=== PATIENT | female | born 1995 | race Caucasian/White ===

== ENCOUNTER → 2022-10-30 13:00 | Outpatient (CLI) | payer OTHER, SELFPAY ==
--- NOTE | ~2022-10-30 | US_ITS ---
EXAMINATION: US OB transvaginal DATE: 10/30/2022 13:31 INDICATION: First trimester viability assessment TECHNIQUE: Real-time pelvic transabdominal and transvaginal ultrasound was performed. COMPARISON: None. FINDINGS: The uterus measures 6.8 x 4.8 x 6 cm. There is an intrauterine gestational sac. There is a 1.3 x 1.1 x 0.6 cm hypoechoic area adjacent to the gestational sac. A yolk sac is identified. heart motion is identified measuring 153 beats per minute (bpm) by M-mode Doppler. The crown ru mp length measures 1.5 cm, which correlates with an estimated gestational age of 7 weeks and 6 day(s) (+/-) 5 day(s). The left ovary is not visualized however no left adnexal abnormality is seen. The right ovary measure s 2.7 x 3 x 1.9 cm. There is normal vascular flow in the right ovary. There is no free fluid in the p gaye. IMPRESSION: 1. Live intrauterine with an estimated gestational age of 7 weeks and 6 day(s) (+/-) 5 day( s) and an estimated delivery date of 06/12/2023. 2. Small subchorionic hematoma. Reviewed, dictated and finalized at location A. LANCE WEB DESIGNER IMPRESSION: 1. Live intrauterine with an estimated gestational age of 7 weeks and 6 day(s) (+/-) 5 day(s) and an estimated delivery date of 06/12/2023. 2. Small subchorionic hematoma.
== END ==
PROVIDERS: PCP Advanced Practice Midwife; Visit Provider Advanced Practice Midwife
DX: O36.80X0 Pregnancy with inconclusive fetal viability, not applicable or unspecified (principal); O36.8911 Maternal care for other specified fetal problems, first trimester, fetus 1; Z3A.01 Less than 8 weeks gestation of pregnancy
CPT/HCPCS: 76817

== ENCOUNTER → 2022-11-30 10:09 | Outpatient (CLI) | payer OTHER, SELFPAY ==
--- NOTE | ~2022-11-30 | US_ITS ---
EXAMINATION: US OB limited DATE: 11/30/2022 10:25 INDICATION: Subchorionic hematoma TECHNIQUE: Real-time transabdominal and transvaginal obstetric ultrasound. FINDINGS: Ultrasound dated 10/30/2022 The uterus measures 11.2 x 5.8 x 9.4 cm. There is an intrauterine gestational sac with pole. Fe leatha heart rate is 165 BPM. Normal amniotic fluid volume subjectively. No evidence for subchorionic he morrhage on the current study. No free fluid in the pelvis. IMPRESSION: 1. SL IUP with heart rate of 164 BPM. 2: No evidence for subchorionic hematoma on the current study. Reviewed, dictated and finalized at location A. TOOTH LAPPING MACHINE OPERATOR
== END ==
PROVIDERS: PCP Obstetrics & Gynecology Gynecology; Visit Provider Obstetrics & Gynecology Gynecology
DX: O36.8910 Maternal care for other specified fetal problems, first trimester, not applicable or unspecified (principal)
CPT/HCPCS: 76815

== ENCOUNTER → 2023-01-14 13:51 | Outpatient (CLI) | payer OTHER, SELFPAY ==
--- NOTE | ~2023-01-14 | US_ITS ---
EXAMINATION: US OB /maternal detail DATE: 01/14/2023 14:26 INDICATION: survey TECHNIQUE: Multiple obstetric sonographic images performed. FINDINGS: Comparison to multiple prior studies sequentially, with oldest reviewed study dated 2021. There is a single living fetus in transverse/variable presentation. The placenta is posterior withou t placenta previa. Amniotic fluid volume is normal. cardiac activity and movement is noted with a heart rate of 149 beats per minute. The following anatomy was identified as normal: 4 chamber heart 3 vessel cord cord insertion kidneys urinary bladder stomach spine diaphragm ventricles cisterna magna cerebellum The following biometric data were obtained: BPD: 42mm corresponds to gestational age 18 weeks 5 days. Head circumference: 164 mm corresponds to gestational age 19 weeks 1 days. Abdominal circumference: 140 mm corresponds to gestational age 19 weeks 3 days. Femur length: 28 mm corresponds to gestational age 18 weeks 3 days. Head circumference to abdominal circumference ratio: 1.16 (normal range for expected gestational age is 1.09-1.26). Estimated weight: 277 grams +/- 40 grams using Hadlock method, 62%. IMPRESSION: 1: Single living intrauterine with an estimated gestational age of 18weeks 5days by initial ultrasound measurements, with an EDC of 06/12/2023 in variable presentation. 2. Normal survey. Reviewed, dictated and finalized at location L. RAL AIR MARSHAL IMPRESSION: 1: Single living intrauterine with an estimated gestational age of 18 weeks 5days by initial ultrasound measurements, with an EDC of 06/12/2023 in tiny iable presentation. 2. Normal survey.
== END ==
PROVIDERS: PCP Obstetrics & Gynecology Gynecology; Visit Provider Obstetrics & Gynecology Gynecology
DX: Z36.9 Encounter for antenatal screening, unspecified (principal); Z3A.18 18 weeks gestation of pregnancy
CPT/HCPCS: 76805

== ENCOUNTER 2023-05-22 11:40 | Outpatient (CLI) | payer OTHER, SELFPAY ==
[2023-05-22 12:15] VITALS: BP 109/70; PULSE 85
[2023-05-22 12:16] VITALS: BP 111/74; PULSE 83
[2023-05-22 12:20] LABS: Basophils Absolute Auto 0.1 K/mm3 (0.0-0.1); Basophils Percent Auto 0.4 % (0.2-1.2); Eosinophils Absolute Auto 0.1 K/mm3 (0-0.3); Eosinophils Percent Auto 1.2 % (0-4.4); Hematocrit 38.3 % (37.0-47.0); Hemoglobin 12.7 g/dL (12.0-15.0); Immature Granulocyte Absolute 0.07 K/mm3 (0.00-0.031); Immature Granulocyte Percent A 0.6 % (0-0.5); Lymphocytes Absolute Auto 2.02 K/mm3 (0.9-3.2); Lymphocytes Percent Auto 17.6 % (18.3-44.2); Mean Corpuscular HGB Conc 33.2 g/dl (32-36); Mean Corpuscular Hemoglobin 31.2 pg (26-34); Mean Corpuscular Volume 94.1 fl (80-100); Mean Platelet Volume 9.7 fl (7.4-10.4); Monocytes Absolute Auto 0.6 K/mm3 (0.1-0.6); Monocytes Percent Auto 5.6 % (2.6-8.5); Neutrophils Absolute Auto 8.6 K/mm3 (1.3-6.7); Neutrophils Percent Auto 74.6 % (45.5-73.1); Platelet Count Result 254 k/mm3 (150-375); Red Blood Count 4.07 M/mm3 (4.2-5.4); Red Cell Distribution Width 12.9 % (11.5-14.5); White Blood Count 11.5 K/mm3 (4.5-10.0)
[2023-05-22 12:25] LABS: Appearance Urine Clear (Clear); Bacteria Urine Rare /hpf; Bilirubin Urine Negative (Negative); Blood Urine Negative (Negative); Color Urine Yellow (Yellow); Glucose Urine UA Negative (Negative); Ketones Urine Negative (Negative); Leukocyte Esterase Ur 3+ LEU/UL (NEGATIVE); Nitrate Urine Negative (Negative); Non Pathogenic Casts 0-2; Protein Urine Negative (Negative); RBC Urine 0-2 /hpf (0-2); Specific Grav Ur 1.012 (1.001-1.035); Squamous Epithelial Cell Urine Occasional /hpf (Few); Urobilinogen Urine 0.2 mg/dL (<2.0); pH Urine 7.5 (5.0-9.0)
[2023-05-22 12:28] LABS: Creatinine Urine 44.5 mg/dL; Total Protein Urine Random 11 mg/dL; Ur Ttl Prot Creatinine Ratio 0.25 mg/mg (0-0.20)
[2023-05-22 12:30] VITALS: BP 108/67; PULSE 82
[2023-05-22 12:32] LABS: Add Urine Microscopic? YES
[2023-05-22 12:33] LABS: Alanine Aminotransferase 61 U/L (6-35); Albumin Level 3.9 g/dL (3.5-5.1); Alkaline Phosphatase 132 U/L (38-126); Anion Gap 5 mmol/L (8-16); Aspartate Amino Transferase 43 U/L (14-36); Bilirubin,Total 0.3 mg/dL (0.2-1.3); Blood Urea Nitrogen 11 mg/dL (7-17); Calcium 8.7 mg/dL (8.4-10.2); Carbon Dioxide 27 mmol/L (22-30); Chloride 104 mmol/L (98-107); Estimated Glomerular Filt Rate > 60; Glucose 85 mg/dL (65-110); Potassium 4.1 mmol/L (3.4-5.0); Sodium 136 mmol/L (137-145); Uric Acid 3.8 mg/dL (2.5-7.5)
[2023-05-22 12:45] VITALS: BP 106/69; PULSE 78
[2023-05-22 15:02] LABS: Hepatitis B Surface Antigen Negative (Negative)
[2023-05-22 15:07] LABS: HAV RESULT Negative (Negative); Hepatitis B Core IgM Result Negative (Negative)
[2023-05-22 15:17] LABS: Hepatitis C Virus Antibody Negative (Negative)
== END 2023-05-22 13:00 | disposition home or self-care (01) ==
LOC: ANHOBOP 11:49 → ANHOBPP 11:51
PROVIDERS: Visit Provider Obstetrics & Gynecology Gynecology
DX: O12.03 Gestational edema, third trimester (principal); Z3A.36 36 weeks gestation of pregnancy
CPT/HCPCS: 36415; 59025; 80053; 80074; 81001; 82570; 84156; 84550; 85025; 87086; 87088; 99199

== ENCOUNTER 2023-05-23 17:20 | Outpatient (CLI) | payer OTHER, SELFPAY ==
[2023-05-23 17:32] VITALS: BMI 29.1
[2023-05-23 18:28] LABS: Collection Time Urine 24 HOURS
[2023-05-23 18:29] LABS: Patient Weight 169 Lbs; Total Volume 24 Hour Urine 1850 ml
[2023-05-23 18:39] LABS: Creatinine Clearance Urine 94.1 ml/min (75-125); Creatinine Urine 46.1 mg/dL; Total Protein Urine 24 Hr 259 mg/24hr (28-141); Total Protein Urine Random 14 mg/dL
== END 2023-05-23 17:21 | disposition home or self-care (01) ==
PROVIDERS: Visit Provider Obstetrics & Gynecology Gynecology
DX: Z34.90 Encounter for supervision of normal pregnancy, unspecified, unspecified trimester (principal); Z3A.00 Weeks of gestation of pregnancy not specified
CPT/HCPCS: 81050; 82575; 84156

== ENCOUNTER 2023-05-31 15:44 | Outpatient (CLI) | payer OTHER, SELFPAY ==
[2023-05-31 16:43] LABS: Alanine Aminotransferase 60 U/L (6-35); Albumin Level 3.9 g/dL (3.5-5.1); Alkaline Phosphatase 133 U/L (38-126); Anion Gap 5 mmol/L (8-16); Aspartate Amino Transferase 49 U/L (14-36); Bilirubin,Total 0.3 mg/dL (0.2-1.3); Blood Urea Nitrogen 12 mg/dL (7-17); Calcium 9.3 mg/dL (8.4-10.2); Carbon Dioxide 29 mmol/L (22-30); Chloride 101 mmol/L (98-107); Estimated Glomerular Filt Rate > 60; Glucose 79 mg/dL (65-110); Potassium 4.1 mmol/L (3.4-5.0); Sodium 135 mmol/L (137-145)
== END 2023-05-31 15:45 | disposition home or self-care (01) ==
LOC: ANHLAB 15:46
PROVIDERS: Visit Provider Obstetrics & Gynecology Gynecology
DX: Z34.03 Encounter for supervision of normal first pregnancy, third trimester (principal)
CPT/HCPCS: 36415; 80053

== ENCOUNTER 2023-06-13 08:25 | Inpatient (IN) | payer OTHER, SELFPAY ==
[2023-06-13] VITALS (149 sets, daily range): BP systolic 89–220; BP diastolic 49–180; PULSE 52–140; RESP 18; TEMP 36.2–37.4; O2SAT 84–100; BMI 29.6
--- NOTE | 2023-06-13 08:25 | LDADM ---
This patient, Silverio Gonzalez, was admitted to Labor/Delivery/Recovery 105 on 06/13/23 at 08:25. Plans for labor, pain management and were discussed with patient. Patient/family oriented to hospital policies and general routines including ID bracelet, bed and alarms, visiting hours, pain management, procedures, bathroom and other care routines, personal items, smoking policy, room service/diet and guest tray routines, security routines, and visiting hours. Patient/Family are encouraged to report perceived risks to care and to ask questions if they do not understand what they are told or what they should do. See OBIX for further documentation.
--- NOTE | 2023-06-13 09:21 | PM.IMHP ---
H&P: HPI History of Present Illness Date/Time: 06/13/23 09:21 Chief Complaint: contractions Narrative: Silverio is a 27yo @ 39.4wks (HOSSEIN 06/16/23) who presented to L&D with contractions that have been occuring about every 3 minutes since early this morning. She reports good movement. No VB or LOF. She was found to be 5.5cm dilated on admission. She would like epidural. She has had regular care with Dr. Sims; normal course. GBS negative. Review of Systems Constitutional: Constitutional: Denies chills, Denies fever(s) and Denies headache(s) Eyes: Eyes: Denies change in vision ENT: Denies headache(s) Cardiovascular: Cardiovascular: Denies chest pain and Denies dyspnea Respiratory: Respiratory: Denies dyspnea Genitourinary: Genitourinary: Denies abnormal vaginal bleeding and Denies vaginal discharge Neurologic: Denies headache(s) Psychiatric: Psychiatric: Denies anxiety and Denies depression [facility] Family History Family History Mother High cholesterol Hypertension Other Breast cancer Social History Social History Smoking status: Never smoker Alcohol intake: current Drinks per week: 2 Substance use: never Spiritual care concerns: No Meds Home Medications and Allergies Home Medications Medication Instructions Recorded Confirmed Type aspirin 81 mg tablet 81 mg PO DAILY 05/17/23 05/17/23 History cholecalciferol (vitamin D3) 1,250 1,250 mcg PO WEEKLY 05/17/23 05/17/23 History mcg (50,000 unit) tablet prenat.vits,chuy,rtv-apsw-ixlxr 1 tablet 05/17/23 History Allergies Allergy/AdvReac Type Severity Reaction Status Date / Time No Known Allergies Allergy Verified 09/17/20 09:09 Vital Signs Vital Signs - 24 hr 06/13/23 09:00 06/13/23 09:15 Pulse Rate 82 82 Blood Pressure 115/81 121/82 Exam Const: General: cooperative, healthy appearing and acute distress mild (with contractions) Nutritional Appearance: obese Orientation/consciousness: patient oriented x3 Resp: Effort & Inspection: normal respiratory effort Cardio: Rate: regular rate GI: GI Palp: No abdominal tenderness : Other: FHT's: 140's/ mod tiny/ + accels/ no decels - cat 1 TOCO: ctxs q3-4min Cervix: 5.5/50/-2 Membranes: intact Presentation: cephalic Skin: General skin exam: normal color Neuro: General: patient oriented x3 Extrem: General: normal to inspection Psych: Appearance: grossly normal Affect: normal affect Attitude: cooperative Assessment and Plan Assessment and plan (1) Active labor at term: Status: Acute Plan - Admit to L&D - Anesthesia consult for epidural - Continuous monitoring; currently reassuring - GBS negative - Will plan for AROM after epidural; if no change, would augment with low dose pitocin
[2023-06-13] MEDS: LACTATED RINGERS 1,000 ML 125 ML IV CONT ×3 (09:23→16:01)
--- NOTE | 2023-06-13 09:28 | WPDHPUPDATE1 ---
History and Physical Update Update Date/Time: 06/13/23 09:28 History and Physical has been reviewed, including an updated exam of the patient. There are NO changes in the patient's condition. Risks, benefits, and alternatives have been discussed and questions answered. Patient agrees to proceed with procedure.
[2023-06-13 09:29] LABS: Basophils Absolute Auto 0.1 K/mm3 (0.0-0.1); Basophils Percent Auto 0.3 % (0.2-1.2); Eosinophils Percent Auto 0.1 % (0-4.4); Hematocrit 40.6 % (37.0-47.0); Hemoglobin 13.9 g/dL (12.0-15.0); Immature Granulocyte Percent A 0.7 % (0-0.5); Lymphocytes Absolute Auto 1.62 K/mm3 (0.9-3.2); Lymphocytes Percent Auto 10.8 % (18.3-44.2); Mean Corpuscular HGB Conc 34.2 g/dl (32-36); Mean Corpuscular Hemoglobin 31.2 pg (26-34); Mean Platelet Volume 10.6 fl (7.4-10.4); Monocytes Absolute Auto 0.6 K/mm3 (0.1-0.6); Monocytes Percent Auto 4.3 % (2.6-8.5); Neutrophils Absolute Auto 12.6 K/mm3 (1.3-6.7); Neutrophils Percent Auto 83.8 % (45.5-73.1); Platelet Count Result 217 k/mm3 (150-375); Red Blood Count 4.46 M/mm3 (4.2-5.4); Red Cell Distribution Width 13.2 % (11.5-14.5)
--- NOTE | 2023-06-13 11:11 | PM.OBPNLAB ---
Pain Control Date/time seen: 06/13/23 11:11 Pain control: epidural Pelvic Exam Dilation (cm): 7 Effacement (%): 90 station: 0 Amniotic membrane status: Ruptured (AROM, clear 1110) Contractions Monitor mode: External Contraction frequency: 2 (-4) Status status: Category l Assessment and Plan Assessment: active labor Plan: continuous present management
[2023-06-13] MEDS: OXYTOCIN 30 UNITS/NS 500 ML 30 UNITS/500 ML BAG 999 UNITS IV CONT (16:59)
--- NOTE | 2023-06-13 17:20 | P.PCNOB_ITS ---
OB - Delivery Note Procedure Delivery date: 06/13/23 Intrapartal Events: Decelerations (with thick meconium) Delivery augmentation: Rupture of Membranes Delivery monitor: External FHT and External Uterine Route of delivery: Laceration Description: Perineal - 1st Degree Delivery repair: vicryl Specimen: Yes (placenta) Quantitative Blood Loss (ml): 200 Anesthesia type: Epidural Disposition: Floor [place] Baby Date of : 06/13/23 Time of : 16:53 Weeks of gestation at delivery: 39 (.4) Infant gender: Male Weight (pounds): 7 Weight (ounces): 1 presentation: vertex position: Right Occiput Anterior Placenta delivery description: Expressed Cord Vessel Description: 3 Vessels and Clamped/Cut score one minute: 8 score five minutes: 9 Narrative: Silverio progressed to complete dilation and was found to be having severe variables. She pushed for approximately 15 minutes with good maternal effort. She delivered the head over intact perineum. No nuchal cord was palpated. She easily delivered the infant's shoulders and body without complication. Thick meconium was present. The infant was immediately placed skin to skin. The umbilical cord was clamped and cut and handed off to the awaiting pediatric team. A segment of the cord was collected for cord gases. The remaining cord blood was collected for typing. With Pitocin infusing and gentle downward pressure, the placenta delivered without complications. Bimanual massage was performed and good uterine tone was noted. She was examined and a right vaginal extending to a first-degree perineal laceration was noted. It was repaired in the normal fashion using 2-0 Vicryl. Good hemostasis with firm uterine tone was noted. Sponge, lap, instrument, needle counts were correct at the end of the procedure. Mom and baby were left bonding skin to skin in the birthing suite in a stable condition. [facility] Delivery Billing Delivery Delivery: Delivery Charge
[2023-06-13] MEDS: OXYTOCIN 30 UNITS/NS 500 ML 30 UNITS/500 ML BAG 125 UNITS IV CONT (17:35)
[2023-06-13] MEDS: WITCH HAZEL 40 PADS 1 PAD TOPICAL (19:08)
[2023-06-13] MEDS: BENZOCAINE 20% AER SPR (*SP) 56 GM CAN 1 SPRAY TOPICAL (19:08)
--- NOTE | 2023-06-13 19:27 | PC.NURSE ---
Patient transferred to post room # 281 via ( W/C ). Support person present. Oriented to unit, room, information board, rooming in, admission packet and security measures. Patient verbalizes understanding.
[2023-06-14] MEDS: IBUPROFEN 600 MG TABLET PO (00:05)
[2023-06-14 05:43] LABS: Hematocrit 31.2 % (37.0-47.0); Hemoglobin 10.4 g/dL (12.0-15.0)
[2023-06-14] MEDS: DOCUSATE SODIUM 100 MG CAPSULE PO (08:23)
[2023-06-14] MEDS: MULTIVIT/MIN/PREN/FOL AC/IRON TABLET 1 TAB PO (08:23)
[2023-06-14 08:35] VITALS: BP 124/76; PULSE 104; RESP 18; TEMP 36.7; O2SAT 100
[2023-06-14 12:00] VITALS: BP 112/81; PULSE 116; RESP 16; TEMP 36.8; O2SAT 99
--- NOTE | 2023-06-14 12:22 | PM.OBPNVD ---
OB - PN: Subj Subjective Date/time seen: 06/14/23 12:22 Patient comments: no complaints and pain well controlled baby status: doing well OB - PN: Obj Data Labs 06/14/23 05:12 Labs: Laboratory Results - last 24 hr 06/13/23 06/14/23 12:36 05:12 Hgb 10.4 L D Hct 31.2 L Blood Type A Positive Antibody Screen Negative OB - PN A/P Plan day: 1 Plan: routine care, discharge home, follow up 6 weeks and other (unsure control) Time Spent With Patient Time: Total time spent is greater than 50% in coordination of care (as documented) at patient's floor/unit and/or counseling patient: Exam : Bimanual exam- vagina & uterus: other (Uterus firm, nt @U)
--- NOTE | 2023-06-14 12:23 | PM.OBDSVD ---
DS: Admitting Diagnosis Discharge Date 06/14/23 Admitting Diagnosis Labor at 39+weeks DS: Discharge Diagnosis Discharge Diagnosis (1) (normal spontaneous vaginal delivery): Code(s): O80 - Encounter for full-term uncomplicated delivery Status: Acute OB - DS: Summary OB Procedures : Ultrasound OB Procedures Intrapartum: Spontaneous Vag Delivery OB Procedures: : None Peripartum Data Infant Delivery Method: Natural Vaginal Laceration Description: Perineal - 1st Degree complications: none Status at Discharge Functional status at discharge: independent ambulation Overall status at discharge: patient is progressing back to baseline Time Spent with Patient Time attestation: Total time spent providing and/or coordinating discharge services: DS: Data Data Completed and Pending Pending studies at discharge: Pending at discharge 06/13/23 17:58 Surgical [PTH] Routine Labs on day of discharge: Labs from last 24 hours 06/14/23 06/13/23 05:12 12:36 Hgb 10.4 L D Hct 31.2 L Blood Type A Positive Antibody Screen Negative Discharge Plan Discharge Attending physician on discharge: Letty Sims Discharging Clinician: Letty Sims Anticipated Discharge Date/Time: 06/14/23 12:24 Patient Disposition: Home, Self-Care Activity: may shower and pelvic rest Diet: regular Patient Instructions: Antibiotic Form Stand Alone Forms: General Discharge Information Follow-up/Referrals: Letty Sims MD [Physician] - 6 Weeks Discharge Medications: Continued #2 Tablet 1 tablet Discontinued Adult Low Dose Aspirin 81 mg Tablet 81 mg PO DAILY Date of admission: 06/13/23 08:25 Primary Care Provider: PHYSICIAN,ACID POLYMERIZATION OPERATOR Admitting Provider: Letty Sims Attending physician on admission: Letty Sims Condition: Stable
--- NOTE | 2023-06-14 12:31 | WPDANLDPN2 ---
Anes-Prog Note L&D Date/Time: 06/14/23 12:31 Comfortable throughout: labor and delivery Neuraxial method: epidural Epidural/Spinal procedure site: clean & non-tender Neuro status: Neuro function grossly intact. Cardiovascular status: normal Respiratory status: normal Airway patency: baseline Mental status: baseline Post-Op hydration status: normal Vital Signs: Last Vital Signs Temp 36.7 C 06/14/23 08:35 Pulse 104 H 06/14/23 08:35 Resp 18 06/14/23 08:35 BP 124/76 06/14/23 08:35 Pulse Ox 100 06/14/23 08:35 O2 Del Method Room Air 06/13/23 20:20 Pain score (VAS): 2/10 I/O: Intake & Output 06/13/23 06/14/23 06/14/23 23:59 07:59 15:59 Intake Total 1500 Output Total 325 Balance 1175 Patient feedback: Patient satisfied with anesthetic care.
[2023-06-14 14:19] LABS: Rapid Plasma Reagin Non-Reactive (NonReactive)
--- NOTE | 2023-06-14 15:53 | PC.NURSE ---
Addendum entered by Cornelia Conklin RN 06/14/23 16:05: Visualized small linear ellis on the left nipple that are purple in color. Reviewed with mother how to protect her nipple from injury using the sandwich hold to facilitate a deeper latch. Original Note: [id number] Introductions were made, then consulted with patient to assess needs related to . Mother led the conversation with her?plans to feed?her infant and the?experience so far. Resources provided for inpatient and outpatient services with the mom/baby guide and name written on the white board. Mother works well with her with encouragement and education. Encouraged understanding of the benefits of skin to skin (demonstrating unwrapping and placing upright on her chest), stimulating with massage touch, changing positions to encourage wakefulness, how to watch for early feeding cues, responsive feeding, feeding on demand (aiming for 8-12 times in 24 hours, about every 2-3 hours), milk production, building/maintaining a milk supply, duration of feeding, signs of adequate intake/output and how to record on the feeding sheet. Reviewed positioning and ear, shoulder, hip alignment, supporting the breast to facilitate a deep latch, asymmetrical latch (off-center), leading with the chin with a big, open, wide gape and body close to mother. latched optimally to the right breast using the football positioning, then after an effective latched to the left breast with cross cradle position. Education given to mother of how to visualize suck/swallow ratios and listen for drinking at the breast. Infant was able to maintain latch without discomfort to mother. Nipple care reviewed with optimal latch and good positioning. Mother voiced understanding of skin to skin, stimulating with massage touch, responsive feedings, hand expressed colostrum, talking to to encourage if it has been 2 -2.5 hours since the start of the last , to call if infant does not latch, or if there is discomfort with . Mother voiced understanding of information and will call if there is a request for assistance. Reported to the primary RN.
[2023-06-14 16:25] VITALS: BP 124/79; PULSE 101; RESP 18; TEMP 36.6
--- NOTE | 2023-06-14 16:27 | PC.NURSE ---
Assessment unchanged, patient remains stable, discharging to home, approved by Dr. Sims. Patient requesting to be with infant who is being transferred to [facility].
[2023-06-16 08:54] VITALS: BP 128/75; PULSE 105; RESP 18; TEMP 36.8; O2SAT 100
== END 2023-06-14 16:33 | disposition home or self-care (01) | DRG 807 ==
LOC: ANHLDR 08:50 → ANHOB2 19:57
PROVIDERS: Admitting Provider Obstetrics & Gynecology; Visit Provider Obstetrics & Gynecology Gynecology
DX: O77.0 Labor and delivery complicated by meconium in amniotic fluid (principal); Z37.0 Single live birth; Z3A.39 39 weeks gestation of pregnancy; O70.0 First degree perineal laceration during delivery; O36.8330 Maternal care for abnormalities of the fetal heart rate or rhythm, third trimester, not applicable or unspecified
CPT/HCPCS: 36415; 84112; 85014; 85018; 85025; 86592; 86850; 86900; 86901; 88307; A9270; J2590; J2795; J7120

== ENCOUNTER 2023-12-31 09:45 | Emergency (ER) | payer OTHER, SELFPAY ==
[2023-12-31 09:58] VITALS: BP 93/65; PULSE 103; RESP 16; TEMP 36.7; O2SAT 99
--- NOTE | 2023-12-31 10:10 | ED.URI ---
HPI - URI/Sore Throat General Chief Complaint: Upper Respiratory Infection Stated Complaint: COUGH/BODY ACHES/CHILLS/SORE THROAT Time Seen by Provider: 12/31/23 10:11 Source: patient and RN notes reviewed Mode of arrival: ambulatory Limitations: no limitations History of Present Illness HPI Narrative: 28-year-old female presented for complaint of cough, sore throat, and fever and chills. Onset yesterday. Endorses and 6-month-old tested positive for influenza this week. Not taking anything for symptoms. Denies shortness of breath, wheezing, nausea vomiting, diarrhea or lethargy. MD elicited complaint: cough Related Data Home Medications Medication Instructions Recorded Confirmed No Home Medications 12/31/23 12/31/23 Allergies Allergy/AdvReac Type Severity Reaction Status Date / Time No Known Allergies Allergy Verified 12/31/23 09:54 Review of Systems Review of Systems: CONSTITUTIONAL: Endorses malaise denies chills, sweats, fever EYES: Denies visual changes, redness, or discharge ENT: Reports rhinorrhea, sore throat denies sinus pain, otalgia CARDIOVASCULAR: Denies chest pain, palpitations, edema RESPIRATORY: Reports cough, Denies dyspnea GASTROINTESTINAL: Denies abdominal pain, nausea, vomiting, diarrhea SKIN: Denies rash or itching MUSCULOSKELETAL: Endorses myalgia PMFSH Family History Family History Mother High cholesterol Hypertension Other Breast cancer Social History Social History Smoking status: Never smoker Second hand tobacco smoke exposure: No Alcohol intake: current Drinks per week: 2 Substance use: never Lack of Transportation: No Lack of Food: Never True Current Housing: I Have Housing Concerned About Future Housing: No Difficulty Paying Gas/Electric Bills: No Difficulty Paying for Meds: No Currently Unemployed: No Education: High School Diploma/GED Difficulty w/ Childcare or Family Care: No Spiritual care concerns: No Exam Narrative: GENERAL: well-appearing EYES: PERRLA, conjunctivae clear ENT: Mucous membranes moist. TM pearly maria with dull light reflex bilaterally; no tragal tenderness. Oropharynx not erythematous without lesions or exudate, no drooling, no hoarseness, no trismus, uvula midline. No tripod positioning, muffled voice, soft palate or pharyngeal wall bulging NECK: Supple. No lymphadenopathy CHEST: Clear to auscultation, breath sounds equal. HEART: Regular rate and rhythm. No murmur heard. SKIN: Warm, dry, no rash. NEURO: Alert and oriented x3. PSYCH: Normal mood and affect Course Course Emergency Course: Patient is aware of diagnosis, understands and agrees to treatment plan. Anticipatory guidance given. Patient agrees to follow-up as directed and is aware of reasons to seek care at the emergency department. Portions of this record may have been created with voice recognition software Level of Care: Express Care Visit Vital Signs Vital signs: Vital Signs Temperature 98.1 F 12/31/23 09:58 Pulse Rate 103 H 12/31/23 09:58 Respiratory Rate 16 12/31/23 09:58 Blood Pressure 93/65 L 12/31/23 09:58 Pulse Oximetry 99 12/31/23 09:58 Temperature 98.1 F 12/31/23 09:58 Pulse Rate 103 H 12/31/23 09:58 Respiratory Rate 16 12/31/23 09:58 Blood Pressure 93/65 L 12/31/23 09:58 Pulse Oximetry 99 12/31/23 09:58 reviewed MDM - URI/Sore Throat MDM Narrative Medical decision making narrative: Negative flu and COVID. Results reviewed with patient. Declined strep testing. Discussed physical exam findings. Advised supportive measures and signs/symptoms to go to the ER. Pt is appropriate for outpt treatment and f/u. Differential Diagnosis Differential diagnosis: Likely upper respiratory infection, viral infection and influenza Discharge Plan Discharge Clinical Impression:
== END 2023-12-31 10:20 | disposition home or self-care (01) ==
PROVIDERS: Emergency Provider Nurse Practitioner Family; PCP Obstetrics & Gynecology Gynecology
DX: B34.9 Viral infection, unspecified (principal); Z20.822 Contact with and (suspected) exposure to COVID-19
CPT/HCPCS: 87426; 87804; 99213; G0463

== ENCOUNTER 2025-08-03 08:10 | Outpatient (CLI) | payer OTHER, SELFPAY ==
--- OUTSIDE RECORDS SUMMARY | 2025-08-03 08:13 | XMS_ITS | Clinical Summary ---
Author Organization [facility] [employer] Address [address] [place] [address] Care Team Providers Care Loan Specialist Name Role Phone Unavailable Primary Care Provider Unavailabl e Source Comments [facility],non-owned Affiliates and Associated Physician Practices is amultiple site organization consisting of ambulatory clinics and hospital sitesin [place], [place], [place] and [place]. This disclosure is being madepursuant to the Care Everywhere program and may not contain all information available regarding this patient. Last updated 18.[facility] [employer] Allergies No known active allergies Social History Tobacco Use Types Packs/Day Years Used Date Smoking Tobacco: Never Alcohol Use Standard Drinks/Week Comments Not Asked 0 (1 standard drink = 0.6 oz pur e alcohol) Comments No Sex and Gender Information Value Date Recorded Sex Assigned at Not on file Legal Sex Female 9:33 AM INVESTMENT COUNSELOR Gender Identity Not on file Sexual Orientation Not on file Last Filed Vital Signs Vital Sign Reading Time Taken Comments Blood Pressure 111/67 01/13/2016 10:11 AM INVESTMENT COUNSELOR Pulse 87 01/13/2016 10:11 AM INVESTMENT COUNSELOR Temperature 36.8 C (98.2 F) 01/13/2016 10:11 AM INVESTMENT COUNSELOR Respiratory Rate - - Oxygen Saturation - - Inhaled Oxygen Concentration - - Weight 54.1 kg (119 lb 3.2 oz) 01/13/2016 10:11 AM INVESTMENT COUNSELOR Height 160 cm (5' 3) 01/13/2016 10:11 AM INVESTMENT COUNSELOR Body Mass Index 21.12 01/13/2016 10:11 AM INVESTMENT COUNSELOR Plan of Treatment Health Maintenance Due Date Last Done Comments HIV SCREENING 2009 HEPATITIS C SCREENING 09/16/2012 DTAP/TDAP/TD VACCINES (1 - Tdap) 2013 HEPATITIS B VACCINE (1 of 3 - 19+ 3-dose series) 2013 PAP SMEAR 2015 HPV VACCINE (1 - 3-dose SCDM series) 2021 DEPRESSION SCREENING 11/15/2024 COVID-19 VACCINE (2023-2 5 season) 2025 INFLUENZA VACCINE (#1) 2025 ZOSTER VACCINE (1 of 2) 2044 HIB VACCINE Aged Out No longer eligi ble based on patient's age to complete this topic MENINGOCOCCAL (Group B) VACC INE SHARED DECISION-MAKING Aged Out No longer eligibl e based on patient's age to complete this topic MENINGOCOCCAL GROUPS A/C/Y/W VACCINE Aged Out No longer eligible b ased on patient's age to complete this topic PNEUMOCOCCAL VACCINE Aged Out No long er eligible based on patient's age to complete this topic Insurance SELF PAY NO INSURANCE Member Subscriber Plan / Payer (Ef fective for All Dates) Name:Silverio Michel Member ID:Not on file Relation to Subscriber:Self Name:Silverio Michel Subscriber ID:Not on file Payer ID:Not on file Group ID:Not on file Type:Self Pay Address: [place], [place] [facility]
[2025-08-03 13:30] LABS: Hematocrit 37.2 % (37.0-47.0); Hemoglobin 11.8 g/dL (12.0-15.0); Immature Granulocyte Percent A 0.8 % (0-0.5); Lymphocytes Absolute Auto 1.43 K/mm3 (0.9-3.2); Mean Corpuscular HGB Conc 31.7 g/dl (32-36); Mean Corpuscular Hemoglobin 30.6 pg (26-34); Mean Corpuscular Volume 96.4 fl (80-100); Nucleated Red Blood Cells Absolute Auto 0.000 K/mm3 (0.0-0.012); Nucleated Red Blood Cells Perc 0.0 % (0.0-0.2); Platelet Count Result 267 k/mm3 (150-375); Red Blood Count 3.86 M/mm3 (4.2-5.4); White Blood Count 8.6 K/mm3 (4.5-10.0)
[2025-08-03 13:41] LABS: Glucose 1 Hour PP 50gm Dose 108 mg/dL
[2025-08-03 14:09] LABS: Syphilis IgG/IgM Antibody Non-Reactive (Nonreactive)
[2025-08-03 14:21] LABS: HIV 1/2 Ab P24 Ag Result Negative (Negative)
== END 2025-08-03 08:11 | disposition home or self-care (01) ==
LOC: ANHGOSHLAB 08:10
PROVIDERS: Visit Provider Obstetrics & Gynecology
DX: Z34.90 Encounter for supervision of normal pregnancy, unspecified, unspecified trimester (principal)
CPT/HCPCS: 36415; 82947; 85025; 86593; 86703; G0432

== ENCOUNTER 2025-10-15 03:50 | Inpatient (IN) | payer OTHER, SELFPAY ==
[2025-10-15] VITALS (131 sets, daily range): BP systolic 75–196; BP diastolic 28–148; PULSE 77–218; RESP 14–16; TEMP 36.6–36.9; O2SAT 95–100; BMI 30.4
--- NOTE | 2025-10-15 05:04 | LDADM ---
This patient, Silverio Gonzalez, was admitted to Labor/Delivery/Recovery 105 on 10/15/25 at 03:50. Plans for labor, pain management and were discussed with patient. Patient/family oriented to hospital policies and general routines including ID bracelet, bed and alarms, visiting hours, pain management, procedures, bathroom and other care routines, personal items, smoking policy, room service/diet and guest tray routines, security routines, and visiting hours. Patient/Family are encouraged to report perceived risks to care and to ask questions if they do not understand what they are told or what they should do. See OBIX for further documentation.
[2025-10-15 05:11] LABS: Hematocrit 36.9 % (37.0-47.0); Hemoglobin 12.1 g/dL (12.0-15.0); Immature Granulocyte Percent A 0.7 % (0-0.5); Lymphocytes Absolute Auto 1.12 K/mm3 (0.9-3.2); Mean Corpuscular HGB Conc 32.8 g/dl (32-36); Mean Corpuscular Hemoglobin 29.6 pg (26-34); Mean Corpuscular Volume 90.2 fl (80-100); Nucleated Red Blood Cells Absolute Auto 0.000 K/mm3 (0.0-0.012); Nucleated Red Blood Cells Perc 0.0 % (0.0-0.2); Platelet Count Result 209 k/mm3 (150-375); Red Blood Count 4.09 M/mm3 (4.2-5.4); White Blood Count 10.1 K/mm3 (4.5-10.0)
[2025-10-15 05:21] LABS: OBXCEM ROM Plus Positive (Negative)
--- NOTE | 2025-10-15 05:35 | PC.NURSE ---
steel post installer MD Dr. Guadarrama notified of pts arrival to the unit, SROM status, reactive FHT. Will continue to monitor. Dr. Guadarrama wants updates given to Dr. Veras when he is in for the day.
[2025-10-15] MEDS: LACTATED RINGERS 1,000 ML 125 ML IV CONT ×2 (05:41→06:42)
[2025-10-15 06:38] LABS: Syphilis IgG/IgM Antibody Non-Reactive (Nonreactive)
[2025-10-15] MEDS: OXYTOCIN 30 UNITS/NS 500 ML 30 UNITS/500 ML BAG 999 UNITS IV CONT ×2 (11:42→12:22)
--- NOTE | 2025-10-15 11:54 | PM.OBPRVD ---
OB - Vaginal Delivery Note Procedure Delivery date: 10/15/25 Induction method: None Delivery monitor: External FHT and External Uterine Route of delivery: Episiotomy description: None Laceration Description: None Specimen: No Quantitative Blood Loss (ml): 300 Anesthesia type: Epidural Disposition: Floor Complications: No immediate complications Narrative: Patient prepped usual manner for this procedure. Maternal expulsive efforts delivered vertex the rest of baby without difficulty. Cord clamped and cut and placenta delivered spontaneously. Cervix vagina vulva were inspected and no lacerations or tears. Uterus was well contracted with minimal bleeding. [place] Baby Gestational Age by Date: 38 Infant gender: Female presentation: vertex position: Right Occiput Anterior Placenta delivery description: Spontaneous Cord Vessel Description: 3 Vessels
--- NOTE | 2025-10-15 11:58 | WPDHPUPDATE1 ---
History and Physical Update Update Date/Time: 10/15/25 11:58 History and Physical has been reviewed, including an updated exam of the patient. There are NO changes in the patient's condition. Risks, benefits, and alternatives have been discussed and questions answered. Patient agrees to proceed with procedure.
--- NOTE | 2025-10-15 11:58 | WPDOBADMIT ---
Obstetrics - Admit Note Admission Note: record reviewed. No pertinent additions to the history and/or any subsequent changes in the physical findings that are not consistent with the expected course of the were found. Additions to the history and/or subsequent changes in the physical findings follow. None.
[2025-10-15] MEDS: OXYTOCIN 30 UNITS/NS 500 ML 30 UNITS/500 ML BAG 125 UNITS IV CONT (13:14)
--- NOTE | 2025-10-15 14:09 | WPDANESEPPF ---
Anes - Initial Pre Proc Eval Procedure: labor epidural Date/Time: 10/15/25 14:09 Surgeon: Derian Veras MD Pre Op Diagnosis: labor pain Pre Op Diagnosis: SROM Patient Data Age: 30 Gender: F Height: 1.63 m Weight: 80.3 kg Last Vital Signs Temp 36.8 C 10/15/25 11:20 Pulse 100 10/15/25 14:00 BP 106/63 10/15/25 14:00 Pulse Ox 96 10/15/25 12:47 O2 Del Method Room Air 10/15/25 05:03 Allergies Allergy/AdvReac Type Severity Reaction Status Date / Time No Known Allergies Allergy Verified 10/15/25 05:04 Home Medications ?Medication ?Instructions ?Recorded ?Confirmed ?Type docosahexaenoic acid 200 mg mg PO 04/17/25 10/12/25 History capsule ( DHA) Laboratory Tests 10/15/25 10/15/25 04:52 05:03 WBC 10.1 H K/mm3 (4.5-10.0) RBC 4.09 L M/mm3 (4.2-5.4) Hgb 12.1 g/dL (12.0-15.0) Hct 36.9 L % (37.0-47.0) MCV 90.2 fl (80-100) MCH 29.6 pg (26-34) MCHC 32.8 g/dl (32-36) RDW 13.3 % (11.5-14.5) Plt Count 209 k/mm3 (150-375) MPV 10.1 fl (7.4-10.4) Immature Gran % (Auto) 0.7 H % (0-0.5) Neut % (Auto) 79.7 H % (45.5-73.1) Lymph % (Auto) 11.1 L % (18.3-44.2) Harlan % (Auto) 7.8 % (2.6-8.5) Eos % (Auto) 0.4 % (0-4.4) Baso % (Auto) 0.3 % (0.2-1.2) Lymph # (Auto) 1.12 K/mm3 (0.9-3.2) Harlan # (Auto) 0.8 H K/mm3 (0.1-0.6) Eos # (Auto) 0.0 K/mm3 (0-0.3) Baso # (Auto) 0.0 K/mm3 (0.0-0.1) Abs Immat Gran (auto) 0.07 H K/mm3 (0.00-0.031) Absolute Neuts (auto) 8.0 H K/mm3 (1.3-6.7) Absolute Nucleated RBC 0.000 K/mm3 (0.0-0.012) Nucleated RBC % 0.0 % (0.0-0.2) Membranes Rupture Rom plus positive (Negative) Syphilis IgG/IgM Ab Non-reactive (Nonreactive) Blood Type A Positive Antibody Screen Negative Patient hx anesthesia problems: none Family hx anesthesia problems: none Results Review: All pre-operative results and documents have been reviewed as part of the pre-operative evaluation. [facility] Past Medical History Medical History Suppression of menses Family History Family History Mother High cholesterol Hypertension Other Breast cancer Social History Social History Smoking status: Never smoker Second hand tobacco smoke exposure: No Alcohol intake: former Alcohol use details: prior to Substance use: never Substance use type: does not use Lack of Transportation: No Lack of Food: Never True Current Housing: I Have Housing Concerned About Future Housing: No Difficulty Paying Gas/Electric Bills: No Difficulty Paying for Meds: No Currently Unemployed: No Education: Associate Degree Difficulty w/ Childcare or Family Care: No Living arrangements: with family Additional living arrangements comments: and son Occupation/Education: occupation Spiritual care concerns: No Anes - Eval Final PreProcedure Day of Procedure 10/15/25 14:09 Patient weight: obese ASA classification: II Anesthetic plan: proceed Anesthesia type and monitoring: regional epidural and standard monitoring Results Review: All pre-operative results and documents have been reviewed as part of the pre-operative evaluation. Informed Consent: The patient's anesthetic plan and its attendant risks and benefits were discussed with the patient/family/POA. Questions were solicited and answers provided to the satisfaction of the patient/family/POA.
[2025-10-15] MEDS: WITCH HAZEL 40 PADS 1 PAD TOPICAL (15:21)
[2025-10-15] MEDS: BENZOCAINE 20% AER SPR (*SP) 56 GM CAN 1 SPRAY TOPICAL (15:21)
[2025-10-15] MEDS: ACETAMINOPHEN 325 MG TABLET 650 MG PO (15:59)
[2025-10-15] MEDS: IBUPROFEN 600 MG TABLET PO (16:00)
--- NOTE | 2025-10-15 16:26 | OBPPTRN ---
1529-Patient transferred to post room #292 via . Support person present. Oriented to unit, room, information board, rooming in, admission packet and security measures. Patient verbalizes understanding.
[2025-10-16 05:00] VITALS: BP 112/76; PULSE 88; RESP 16; TEMP 37; O2SAT 98
[2025-10-16 05:18] LABS: Hematocrit 32.0 % (37.0-47.0); Hemoglobin 10.5 g/dL (12.0-15.0)
--- NOTE | 2025-10-16 07:16 | WPDANLDPN2 ---
Anes-Prog Note L&D Date/Time: 10/16/25 07:16 Comfortable throughout: labor and delivery Neuraxial method: epidural Epidural/Spinal procedure site: clean & non-tender Neuro status: Neuro function grossly intact. Cardiovascular status: normal Respiratory status: normal Airway patency: baseline Mental status: baseline Post-Op hydration status: normal Vital Signs: Last Vital Signs Temp 37.0 C 10/16/25 05:00 Pulse 88 10/16/25 05:00 Resp 16 10/16/25 05:00 BP 112/76 10/16/25 05:00 Pulse Ox 98 10/16/25 05:00 O2 Del Method Room Air 10/16/25 05:00 Pain score (VAS): 2 I/O: Intake & Output 10/15/25 10/15/25 10/16/25 15:59 23:59 07:59 Intake Total 1662.5 600 Output Total 700 Balance 1662.5 -100 Post-procedural complaints: none Patient feedback: Patient satisfied with anesthetic care.
[2025-10-16 07:45] VITALS: BP 116/80; PULSE 99; RESP 18; TEMP 36.6; O2SAT 98
[2025-10-16] MEDS: DOCUSATE SODIUM 100 MG CAPSULE PO (08:16)
[2025-10-16] MEDS: MULTIVIT/MIN/PREN/FOL AC/IRON TABLET 1 TAB PO (08:16)
--- NOTE | 2025-10-16 08:37 | P.DS_ITS ---
DS: Admitting Diagnosis Discharge Date 10 16 2025 Admitting Diagnosis DS: Discharge Diagnosis Discharge Diagnosis (1) (normal spontaneous vaginal delivery): Code(s): O80 - Encounter for full-term uncomplicated delivery Status: Acute OB - DS: Summary OB Procedures : None OB Procedures Intrapartum: Spontaneous Vag Delivery OB Procedures: : None Peripartum Data Laceration Description: None Episiotomy description: None Time Spent with Patient Time attestation: Total time spent providing and/or coordinating discharge services: DS: Data Data Completed and Pending Labs on day of discharge: Labs from last 24 hours 10/16/25 04:20 Hgb 10.5 L Hct 32.0 L Discharge Plan Discharge Discharging Clinician: Derian Veras Patient Disposition: Home Activity: as tolerated Diet: as tolerated Patient Instructions: Antibiotic Form Patient Language: Lithuanian Stand Alone Forms: General Discharge Information Follow-up/Referrals: Derian Veras MD [Physician, PVC LOADER] - 4 Weeks Discharge Medications: New ibuprofen 600 mg Tablet 600 mg PO Q6H PRN (Reason: Cramping) Qty: 30 0RF Continued DHA 200 mg capsule PO Date of admission: 10/15/25 03:50 Primary Care Provider: UNKNOWN,DOCTOR Admitting Provider: Derian Veras Attending physician on admission: Derian Veras Condition: Stable
--- NOTE | 2025-10-16 09:55 | PC.NURSE ---
Mother verbalizes she is able to independently latch with appropriate positioning and alignment. She denies any nipple discomfort and is responsively . Infant is currently meeting outcomes for weight, output, jaundice, blood sugar and feeding frequencies of 8-12 times in 24 hours. Mother declines any additional assistance or education at this time. Mother is encouraged to call for assistance if her infant doesn?t latch, pain with latching, questions or concerns. Mother voiced understanding of information shared along with the mom/baby guide for an additional resource. Reinforced understanding of milk production, transition of milk, signs of adequate intake, transition of stool, prevention/relief of engorgement, plugged ducts, mastitis, responsive watching for feeding cues, the different methods of stimulating to breastfeed 1-3 hours after the start of the last feeding, community resources, and when to call a provider using the resource of the feeding sheet along with the mom and baby guide. Mother voiced understanding of the information shared, is confident to continue effectively her at home, when to call for assistance, denies any additional assistance or education at this time. Reported to the Primary RN.
--- NOTE | 2025-10-16 13:49 | PC.NURSE ---
CLC RN checked in with mother before she was going home today and was latched optimally to the [left] breast in [cradle] position. Education given to the mother of how to visualize the suckling (with good rocking jaw motion) swallows (dropping of the lower jaw) and how to listen for drinking at the breast (the ka sound). The infant was [able] to maintain latch without discomfort to mother. Nipple care reviewed with optimal latch, good positioning and using clean hands when touching her breast. Resources used to facilitate learning were used from the [visual handouts/ tool/mom and baby guide]. Mother voiced understanding of the education shared, to call for assistance if the infant does not latch or if there is discomfort with . Reported to the Primary RN.
[2025-10-17 15:36] VITALS: BP 111/70; PULSE 99; RESP 18; TEMP 36.5; O2SAT 100
== END 2025-10-16 14:23 | disposition home or self-care (01) | DRG 807 ==
LOC: ANHLDR 05:43 → ANHOB2 15:45
PROVIDERS: Admitting Provider Obstetrics & Gynecology; Visit Provider Obstetrics & Gynecology
DX: O80 Encounter for full-term uncomplicated delivery (principal); Z37.0 Single live birth; Z3A.38 38 weeks gestation of pregnancy
CPT/HCPCS: 36415; 84112; 85014; 85018; 85025; 86593; 86850; 86900; 86901; A9270; J2590; J2795; J7120